=== PATIENT | female | born 1980 | race Two or more races ===

== ENCOUNTER 2023-05-15 15:06 | Emergency (ER) | payer MEDICAID, OTHER ==
[~2023-05-15] VITALS: Ht 152.4 cm; Wt 71.8 kg
[2023-05-15 16:18] LABS: Urine WBC None Seen /hpf (0 - 5)
[2023-05-15 16:51] LABS: Urine Amorphous Crystal FEW /hpf (None Seen); Urine Bacteria NONE SEEN /hpf (None Seen); Urine Blood Negative /uL (Negative); Urine Clarity HAZY (Clear); Urine Color Colorless (Yellow); Urine Protein, UAD Negative (Negative); Urine Specific Gravity 1.017 (1.001-1.035); Urine Urobilinogen Normal (Negative)
[2023-05-16 00:56] VITALS: BP 135/90; PULSE 98; RESP 16; TEMP 97.6; O2SAT 97
[2023-05-16] MEDS: METOCLOPRAMIDE HCL 5MG/ml INJ 2ml VIAL IM ONE (01:04)
[2023-05-16] MEDS: KETOROLAC TROMETH 60MG/2ML VIAL IM ONE (01:04)
[2023-05-16] MEDS: diphenhdrAMINE HCL 50 MG/1 ML VL IM ONE (01:04)
== END 2023-05-16 01:09 | disposition home or self-care (01) ==
LOC: EDBD 15:06 → ER 15:06
DX: G43.909 Migraine, unspecified, not intractable, without status migrainosus (principal); R42 Dizziness and giddiness
CPT/HCPCS: 70450; 81001; 96372; 99285; J1200; J1885; J2765